=== PATIENT | female | born 1985 | race African-American/Black ===

== ENCOUNTER 2018-02-25 16:00 | Emergency (ER) | payer OTHER ==
[~2018-02-25] VITALS: Ht 165.1 cm; Wt 88.0 kg
[2018-02-25 16:04] VITALS: Ht 165.1 cm; Wt 88.0 kg
[2018-02-25] MEDS ORDERED: SOD CHLORIDE 0.9% 1,000 ML IV ONE (17:00)
[2018-02-25] MEDS ORDERED: CEFTRIAXONE 1 GM/50 ML (PMX) 50 ML IVPB ONE (18:00)
--- NOTE | 2018-02-25 18:14 | ERD ---
ER Documentation Chief Complaint Chief Complaint vag bleed 19 weeks preg - minimal bleed now HPI 33-year-old female stating that she is 19 weeks presents with a chief complaint of vaginal bleeding since this morning. Patient states that it was heavy earlier but it is minimal now. Patient states she has irregular menstrual periods, her last menstrual period was in September. Patient admits to having mild crampy pelvic pain. She denies fevers, dysuria, diarrhea, abdominal or pelvic pain. States that she does have an [employer] at all [facility] ROS All systems reviewed and are negative except as per history of present illness. Medications Home Meds Active Scripts Cephalexin* (Keflex*) 500 Mg Capsule, 500 MG PO BID for 7 Days, CAP Prov:MILES BLANCO PA-C 02/25/18 Allergies Allergies: Coded Allergies: No Known Allergy (Unverified , 02/25/18) PMhx/Soc Medical and Surgical Hx: pt denies Medical Hx, pt denies Surgical Hx Hx Alcohol Use: No Hx Substance Use: No Hx Tobacco Use: No Smoking Status: Never smoker Physical Exam Vitals Vital Signs Date Temp Pulse Resp B/P (MAP) Pulse Ox O2 O2 Flow FiO2 Time Delivery Rate 02/25/18 97.4 115 20 141/74 100 16:04 (96) Physical Exam Const: No acute distress Head: Atraumatic Eyes: Normal Conjunctiva ENT: Normal External Ears, Nose and Mouth. Neck: Full range of motion. No meningismus. Resp: Clear to auscultation bilaterally Cardio: Regular rate and rhythm, no murmurs Abd: Soft, non tender, non distended. Normal bowel sounds Skin: No petechiae or rashes Back: No midline or flank tenderness Ext: No cyanosis, or edema Neur: Awake and alert Psych: Normal Mood and Affect Result Diagram: 02/25/18 1644 02/25/18 1644 Results 24 hrs Laboratory Tests Test 02/25/18 16:44 White Blood Count 9.3 10^3/ul Red Blood Count 5.54 10^6/ul Hemoglobin 12.9 g/dl Hematocrit 41.2 % Mean Corpuscular Volume 74.4 fl Mean Corpuscular Hemoglobin 23.3 pg Mean Corpuscular Hemoglobin Concent 31.3 g/dl Red Cell Distribution Width 14.6 % Platelet Count 369 10^3/UL Mean Platelet Volume 8.8 fl Immature Granulocytes % 0.300 % Neutrophils % 59.7 % Lymphocytes % 26.9 % Monocytes % 9.4 % Eosinophils % 2.9 % Basophils % 0.8 % Nucleated Red Blood Cells % 0.0 /100WBC Immature Granulocytes # 0.030 10^3/ul Neutrophils # 5.6 10^3/ul Lymphocytes # 2.5 10^3/ul Monocytes # 0.9 10^3/ul Eosinophils # 0.3 10^3/ul Basophils # 0.1 10^3/ul Nucleated Red Blood Cells # 0.0 10^3/ul Urine Color YELLOW Urine Clarity SLIGHTLY CLOUDY Urine pH 6.0 Urine Specific Reading 1.024 Urine Ketones NEGATIVE mg/dL Urine Nitrite NEGATIVE mg/dL Urine Bilirubin NEGATIVE mg/dL Urine Urobilinogen 2+ mg/dL Urine Leukocyte Esterase TRACE Linda/ul Urine Microscopic RBC 1 /HPF Urine Microscopic WBC 7 /HPF Urine Squamous Epithelial Cells FEW /HPF Urine Calcium Oxalate Crystals MANY /HPF Urine Bacteria FEW /HPF Urine Mucus FEW /HPF Urine Hemoglobin 3+ mg/dL Urine Glucose NEGATIVE mg/dL Urine Total Protein 1+ mg/dl Sodium Level 141 mmol/L Potassium Level 3.5 mmol/L Chloride Level 107 mmol/L Carbon Dioxide Level 25 mmol/L Anion Gap 9 Blood Urea Nitrogen 7 mg/dl Creatinine 0.81 mg/dl Est Glomerular Filtrat Rate mL/min > 60 mL/min Glucose Level 94 mg/dl Calcium Level 9.2 mg/dl Total Bilirubin 0.4 mg/dl Direct Bilirubin 0.00 mg/dl Indirect Bilirubin 0.4 mg/dl Aspartate Amino Transf (AST/SGOT) 29 IU/L Alanine Aminotransferase (ALT/SGPT) 25 IU/L Alkaline Phosphatase 81 IU/L Total Protein 7.1 g/dl Albumin 3.8 g/dl Globulin 3.30 g/dl Albumin/Globulin Ratio 1.15 Beta HCG, Quantitative 257.6 mIU/ml Current Medications Medications Dose Sig/Nomi Start Time Status Last (Trade) Ordered Route PRN Stop Time Admin Dose Reason Admin Sodium 1,000 ml @ Q1H ONCE 02/25/18 DC 02/25/18 Chloride 1,000 mls/hr IV 17:00 16:47 02/25/18 17:59 Ceftriaxone 50 ml @ ONCE ONCE 02/25/18 DC 12/31/18 Sodium 100 mls/hr IVPB 18:00 17:54 02/25/18 18:29 Procedures/MDM 33-year-old female A1 presents with mild to moderate vaginal bleeding since this morning. Beta-hCG was done today and the level was 257 and the ultrasound did not show any intrauterine gestational sac. Patient just recently found out that she was and is not certain at all that she was 19 weeks, patient was instructed to return in 2 days so we can trend the hCG level and repeat the ultrasound. Patient looks well, she is afebrile and hematuria stable to be discharged home to return sooner if condition worsens. She has mild bleeding. Urinalysis showed positive signs of infection therefore she was given Rocephin and a prescription for Keflex as an outpatient. Patient understands and agrees with plan Beta-hCG 257 OB US: 1. No intrauterine gestational sac. If the patient has a positive test, ectopic gestation cannot be excluded. 2. Right ovary not visualized. 3. Otherwise unremarkable study. Departure Diagnosis: Primary Impression: Vaginal bleeding in patient at less than 20 weeks gestation Condition: Stable MILES BLANCO PA-C Feb 25, 2018 18:14
[2018-02-25] MEDS ORDERED: CEPH-443 PO (20:07)
[2018-02-25 20:23] VITALS: BP 164/76; PULSE 97; RESP 18
== END 2018-02-25 20:23 | disposition home or self-care (01) ==
LOC: FTE 16:00
DX: O20.9 Hemorrhage in early pregnancy, unspecified (principal); R10.2 Pelvic and perineal pain; Z3A.19 19 weeks gestation of pregnancy
CPT/HCPCS: 36415; 76801; 80053; 81001; 84702; 85025; 86900; 86901; 87086; 96374; J0696; J7030; Z7502